=== PATIENT | male | born 1995 | race Caucasian/White ===

== ENCOUNTER 2020-05-13 09:57 | Emergency (ER) | payer SELFPAY ==
[~2020-05-13] VITALS: Ht 167.6 cm; Wt 113.0 kg
[2020-05-13] MEDS ORDERED: KETOROLAC 30MG/ML VIAL IV ONE (10:45)
[2020-05-13 11:27] LABS: BASOPHILS % 0.4 % (0.0-2.0); EOSINOPHILS % 3.2 % (0.0-5.0); HEMATOCRIT. 49.7 % (42.0-52.0); HEMOGLOBIN. 17.4 g/dL (14.0-18.0); LYMPHOCYTES % 38.2 % (20.0-50.0); MEAN CORPUSCULAR HEMOGLOBIN 32.6 pg (28.0-32.0); MEAN CORPUSCULAR VOLUME 93.3 fL (80.0-94.0); MEAN PLATELET VOLUME 8.2 fl (7.4-10.4); MONOCYTES % 8.6 % (2.0-8.0); NEUTROPHILS % 49.6 % (40.0-76.0); PLATELET 308 x1000/uL (130-400); RED BLOOD CELL COUNT 5.33 mill/uL (4.7-6.1); RED CELL DISTRIBUTION WIDTH 14.1 % (11.6-14.6)
[2020-05-13 11:33] LABS: CLARITY URINE CLEAR (CLEAR); COLOR URINE DARK YELLOW (YELLOW); KETONES URINE TRACE (NEGATIVE); LEUKOCYTE ESTERASE URINE NEGATIVE (NEGATIVE); NITRITE URINE NEGATIVE (NEGATIVE); OCCULT BLOOD URINE NEGATIVE (NEGATIVE); PH URINE 5.5 (4.5-8.0); PROTEIN URINE NEGATIVE (NEGATIVE); SPECIFIC GRAVITY URINE 1.031 (1.005-1.030)
[2020-05-13 12:53] VITALS: BP 146/88
== END 2020-05-13 12:59 | disposition home or self-care (01) ==
LOC: ER 09:57
DX: S93.401A Sprain of unspecified ligament of right ankle, initial encounter (principal); Z03.818 Encounter for observation for suspected exposure to other biological agents ruled out; W01.0XXA Fall on same level from slipping, tripping and stumbling without subsequent striking against object, initial encounter; Y93.89 Activity, other specified; Y92.018 Other place in single-family (private) house as the place of occurrence of the external cause
CPT/HCPCS: 36415; 71045; 73610; 81003; 85025; 93005; 96374; 99285; J1885; U0003